=== PATIENT | male | born 1950 | race Caucasian/White ===

== ENCOUNTER 2019-05-29 12:55 | Outpatient (CLI) | payer MEDICARE ==
--- NOTE | 2019-05-29 14:02 | RAD ---
PA AND LATERAL VIEWS CHEST: Date: 05/29/19 HISTORY: Cough. Hiccups. FINDINGS: The heart size is normal. The aorta is tortuous. The lungs are expanded without lobar consolidation, pneumothoraces, or pleural effusions. There are degenerative changes in the spine. IMPRESSION: No radiographic evidence of acute cardiopulmonary process. POS: H
== END 2019-05-29 12:56 | disposition home or self-care (01) ==
LOC: BICRAD 12:55
PROVIDERS: ATTEND Internal Medicine
DX: R06.6 Hiccough (principal); R05 Cough
CPT/HCPCS: 71046; 80061; G0103; 36415; 80053; 84443; 85025

== ENCOUNTER 2019-07-21 09:06 | Outpatient (CLI) | payer MEDICARE ==
--- NOTE | 2019-07-21 14:36 | RAD ---
Chest 2 views HISTORY: Preop. COMPARISON: 05/29/2019. FINDINGS: Cardiac silhouette and pulmonary vasculature are unremarkable. Mediastinum is midline. Lung s remain slightly hyperinflated. No confluent airspace consolidation, pneumothorax, or pleural fluid. Degenerative changes of the thoracic spine are evident on the lateral view. IMPRESSION: No active cardiopulmonary abnormalities are demonstrated.
--- NOTE | 2019-07-22 11:10 | EKG ---
Test Reason : Blood Pressure : / mmHG Vent. Rate : 060 BPM Atrial Rate : 060 BPM P-R Int : 144 ms QRS Dur : 096 ms QT Int : 424 ms P-R-T Axes : 031 -06 037 degrees QTc Int : 424 ms Normal sinus rhythm Minimal voltage criteria for LVH, may be normal variant Borderline ECG When compared with ECG of 13-AUG-2014 09:50, T wave amplitude has decreased in Anterior leads Confirmed by DR. Tresa SWANSON ([id number]) on 07/22/2019 11:09:56 AM Referred By: GRAZYNA Confirmed By:DR. Tresa SWANSON
== END 2019-07-21 09:07 | disposition home or self-care (01) ==
LOC: LABBT 09:06
PROVIDERS: ATTEND Thoracic Surgery (Cardiothoracic Vascular Surgery)
DX: Z01.818 Encounter for other preprocedural examination (principal); I25.10 Atherosclerotic heart disease of native coronary artery without angina pectoris
CPT/HCPCS: 71046; 93005; 93010

== ENCOUNTER 2019-07-21 12:30 | Inpatient (IN) | payer MEDICARE ==
[2019-07-21 13:55] LABS: Hemoglobin 15.2 g/dL (14.0-18.0); Mean Corpuscular HGB CONC 33.2 g/dL (32.0-36.0); Mean Corpuscular Hemoglobin 28.7 pg (27.0-31.0); Mean Corpuscular Volume 86.5 fL (78.0-98.0); Mean Platelet Volume 9.3 fL (7.4-10.4); Platelet Count 212 thou/uL (130-400); RBC Distribution Width 13.5 % (11.5-14.5); Red Blood Cell (RBC) Count 5.28 mill/uL (4.70-6.10)
[2019-07-21 14:11] LABS: PTT 26.5 SEC (22.9-36.1)
[2019-07-21 14:44] LABS: Anion Gap 13 mmol/L (10-20); BUN (Urea Nitrogen) 13 mg/dL (8.4-25.7); Calc. Creatinine Clearance 0 mL/min (70-130); Calcium 9.1 mg/dL (7.8-10.44); Carbon Dioxide 24 mmol/L (23-31); Chloride 108 mmol/L (98-107); Estimated GFR-MDRD 67; Glucose 110 mg/dL (80-115); Potassium 3.8 mmol/L (3.5-5.1); Sodium 141 mmol/L (136-145)
[2019-07-22] MEDS ORDERED: EPINEPHrine 1 MG/ML AMP ONE (06:28)
[2019-07-22] MEDS ORDERED: Albumin 5% 500 ML ONE (06:28)
[2019-07-22] MEDS ORDERED: Bupivacaine PF 0.5% 30 ML VIAL ONE (06:28)
[2019-07-22] MEDS ORDERED: Dexamethasone 4 mg/ml Vial ONE (06:28)
[2019-07-22] MEDS ORDERED: Heparin 10,000 UNITS/1 ML VIAL 30,000 UNITS in Sodium Chloride 0.9% 1,000 ML FS SCH (06:45)
[2019-07-22] MEDS ORDERED: Fentanyl 250 MCG/5 ML VIAL ONE (06:47)
[2019-07-22] MEDS ORDERED: Midazolam HCl 5 mg/5 ml Vial ONE (06:48)
[2019-07-22] MEDS ORDERED: Vecuronium 10 MG VIAL ONE ×2 (06:48→09:38)
[2019-07-22] MEDS ORDERED: Dexmedetomidine 200 MCG/2 ML VIAL ONE (06:48)
[2019-07-22] MEDS ORDERED: Midazolam HCl 2 mg/2 ml Vial ONE (07:03)
[2019-07-22] MEDS ORDERED: Sodium Chloride 0.9% 10 ML ONE (07:48)
[2019-07-22] MEDS ORDERED: Insulin Regular 300 UNITS/3 ML VIAL ONE (09:08)
[2019-07-22] MEDS ORDERED: Heparin 5,000 UNITS/ML VIAL ONE (09:38)
[2019-07-22] MEDS ORDERED: Cardioplegic Soln 1,000 ML BAG ONE (09:38)
[2019-07-22] MEDS ORDERED: Calcium Chloride 1 GM/10 ML Abboject SYRINGE ONE (09:38)
[2019-07-22] MEDS ORDERED: Ondansetron PF 4 MG/2 ML Vial ONE (09:38)
[2019-07-22] MEDS ORDERED: PHENYLEPHRINE-NS 100 MCG/ML 10 ML SYRINGE ONE (09:38)
[2019-07-22] MEDS ORDERED: Aminocaproic Acid 5 GM/20 ML VIAL ONE (09:38)
[2019-07-22] MEDS ORDERED: Potassium Chloride 60 MEQ/30 ML VIAL ONE (09:38)
[2019-07-22] MEDS ORDERED: Protamine Sulfate 250 MG/25 ML VIAL ONE (09:38)
[2019-07-22] MEDS ORDERED: Heparin 30,000 units/30 ml VIAL ONE (09:38)
[2019-07-22] MEDS ORDERED: Lidocaine 1% PF 5 ML VIAL ONE (09:38)
[2019-07-22] MEDS ORDERED: Norepinephrine 4 MG/4 ML VIAL ONE (09:38)
[2019-07-22] MEDS ORDERED: Sodium Bicarb 50 MEQ/50 ML Abboject 8.4% SYRINGE ONE (09:38)
[2019-07-22] MEDS ORDERED: Papaverine 60 MG/2 ML VIAL ONE (09:38)
[2019-07-22] MEDS ORDERED: PROPOFOL 200 MG/20 ML VIAL ONE (09:38)
[2019-07-22] MEDS ORDERED: Lidocaine 2% PF 5 ML VIAL ONE (09:38)
[2019-07-22] MEDS ORDERED: Nitroglycerin 50 MG/250 ML BOT ONE (09:38)
[2019-07-22] MEDS ORDERED: Thrombin 5000 UNITS/5 ML VIAL ONE (09:38)
[2019-07-22] MEDS ORDERED: Magnesium Sulfate 1 GM/2 ML VIAL ONE (09:38)
[2019-07-22] MEDS ORDERED: Glycopyrrolate 0.2 MG/ML 5 ML SYRINGE ONE (09:38)
[2019-07-22] MEDS ORDERED: Norepinephrine 8 MG/0.9% NS 250 ML IVPB PRN (11:47)
[2019-07-22] MEDS ORDERED: Potassium Chloride 20 MEQ/100 ML PREMIX BAG IVPB PRN (11:47)
[2019-07-22] MEDS ORDERED: hydrALAZINE 20 MG/ML VIAL SLOW IVP PRN (11:47)
[2019-07-22] MEDS ORDERED: Fentanyl 100 MCG/2 ML VIAL SLOW IVP PRN (11:47)
[2019-07-22] MEDS ORDERED: Bisacodyl 10 MG SUPP PR PRN (11:47)
[2019-07-22] MEDS ORDERED: Promethazine HCl 25 MG/ML VIAL IM PRN (11:47)
[2019-07-22] MEDS ORDERED: Morphine 2 MG/ML SYRINGE SLOW IVP PRN (11:47)
[2019-07-22] MEDS ORDERED: Acetaminophen 325 MG TAB PO PRN (11:47)
[2019-07-22] MEDS ORDERED: Hetastarch 6% 500 ML 500 ML IVPB PRN (11:47)
[2019-07-22] MEDS ORDERED: Nitroglycerin 50 MG/250 ML BOT 250 ML IVPB PRN (11:47)
[2019-07-22] MEDS ORDERED: Guaifenesin DM 100-10/5 ML UDCUP PO PRN (11:47)
[2019-07-22] MEDS ORDERED: Bisacodyl 5 MG TAB PO PRN (11:47)
[2019-07-22] MEDS ORDERED: Mag-Al 1200 mg/1200 mg/30 ML UDCUP PO PRN (11:47)
[2019-07-22] MEDS ORDERED: HYDROcodone/Acetaminophen 5/325 mg Tablet PO PRN (11:47)
[2019-07-22] MEDS ORDERED: Ondansetron PF 4 MG/2 ML Vial IVP PRN (11:47)
[2019-07-22] MEDS ORDERED: D5 1/2 NS w/20 mEq KCL 1,000 ML IV SCH (11:47)
[2019-07-22] MEDS ORDERED: Magnesium 2 GM/50 ML 2 GM in Premix Bag 1 BAG IVPB SCH (11:47)
[2019-07-22] MEDS ORDERED: Dextrose 5% in Water 1,000 ML IV PRN (12:27)
[2019-07-22] MEDS ORDERED: Dextrose 50% Abboject 50 ML SYRINGE SLOW IVP PRN (12:27)
[2019-07-22] MEDS: Fentanyl 100 MCG/2 ML VIAL SLOW IVP PRN ×2 (12:30→15:25)
[2019-07-22] MEDS: Ketorolac Tromethamine 30 MG/ML VIAL IVP SCH ×3 (12:30→23:54)
--- NOTE | 2019-07-22 12:33 | RAD ---
XR Chest 1 View Portable History: Open-heart surgery Comparison: Radiograph prior day Findings: The mediastinum is enlarged, postsurgical in nature. Mediastinum drains are present. Mild a telectasis both lower lobes. No significant pneumothorax. Right central venous catheter tip projects over the right atrium. Impression: Expected postoperative findings without complication.
[2019-07-22 12:39] LABS: Hemoglobin 13.8 g/dL (14.0-18.0); INR-International Normal Ratio 1.2; Mean Corpuscular HGB CONC 34.3 g/dL (32.0-36.0); Mean Corpuscular Hemoglobin 29.7 pg (27.0-31.0); Mean Corpuscular Volume 86.7 fL (78.0-98.0); Mean Platelet Volume 9.1 fL (7.4-10.4); PTT 27.4 SEC (22.9-36.1); Platelet Count 154 thou/uL (130-400); Prothrombin Time 15.3 SEC (12.0-14.7); RBC Distribution Width 13.3 % (11.5-14.5); Red Blood Cell (RBC) Count 4.64 mill/uL (4.70-6.10); White Blood Cell (WBC) Count 20.4 thou/uL (4.8-10.8)
[2019-07-22 13:00] LABS: Anion Gap 10 mmol/L (10-20); BUN (Urea Nitrogen) 11 mg/dL (8.4-25.7); Calc. Creatinine Clearance 97 mL/min (70-130); Calcium 7.9 mg/dL (7.8-10.44); Carbon Dioxide 24 mmol/L (23-31); Chloride 111 mmol/L (98-107); Estimated GFR-MDRD 80; Glucose 113 mg/dL (80-115); Potassium 4.2 mmol/L (3.5-5.1); Sodium 141 mmol/L (136-145)
[2019-07-22 13:03] LABS: Band 23 % (5-11); Lymphocytes 3 % (21-51); MDiff Complete? YES; Metamyelocyte 1 % (0-0); Monocytes 2 % (0-10); Neutrophil 66 % (42-75); RBC Morphology Normal; Reactive Lymphocytes 5 % (0-10)
[2019-07-22] MEDS: CEFAZOLIN 2 GM in Premix Bag 1 BAG IVPB SCH ×2 (14:06→21:27)
--- NOTE | 2019-07-22 16:07 | OP ---
DATE OF PROCEDURE: 07/22/2019 PREOPERATIVE DIAGNOSIS: Coronary artery disease. POSTOPERATIVE DIAGNOSIS: Coronary artery disease. PROCEDURE PERFORMED: Coronary artery bypass grafting x6: 1. Sequential left internal mammary artery to a 1.5 mm diagonal and 1.5 mm distal left anterior descending, good conduit and targets. 2. Left radial artery to 2.5 mm obtuse marginal, good conduit and target. 3. Reverse saphenous vein to 2.0 mm ramus, good conduit and target. 4. Sequential greater saphenous vein graft to 2.5 mm right coronary artery and 1.5 mm distal postoperative descending artery, good conduit and targets. SCAFFOLD WORKER SURGEON: Simeon Moody MD ANESTHESIA: General endotracheal. ANESTHESIOLOGIST: Memo Owens MD. PUMP TIME: 86 minutes. CROSS-CLAMP TIME: 57 minutes. LOW CORE TEMPERATURE: 34 degrees Celsius. WOODWORKER HELPER: Olya Millan. DRAINS: 24-Uzbek chest tubes x2. DRIPS: None. TRANSFUSIONS: None. DESCRIPTION OF PROCEDURE: After consent was obtained, the patient was brought to operating room and placed in supine position on the operating table. Appropriate central line and monitors was placed and general endotracheal anesthesia was induced. Chest, abdomen, and legs were prepped and draped in the usual sterile fashion. Left arm was prepped and draped in the usual sterile fashion. Greater saphenous vein was harvested using an endoscopic technique from the left thigh down into the mid calf. Wounds were irrigated and closed in layers. The left radial artery was harvested as a pedicle graft. Wounds were irrigated and closed in layers. Median sternotomy was performed. Left internal mammary artery was harvested as a pedicle graft. The patient was systemically heparinized. Distal pedicle was divided and infused with papaverine. Thymic fat and pericardium were divided with electrocautery. Pericardial stay sutures were placed. Aortic and atrial cannulation was performed. After adequate heparinization, retrograde prime was performed and the patient was placed on cardiopulmonary bypass. Distal targets were marked. Aortic cross-clamp was applied and antegrade sanguineous cardioplegic arrest was obtained. 1 L of antegrade cold [place] cardioplegia was given. Topical cold solution was used. Reverse saphenous vein was anastomosed in a [id number] fashion with the distal RCA in an end-to-side fashion with the distal PDA in an end-to-side fashion with running 7-0 Prolene suture. Anastomoses were inspected for hemostasis, they were hemostatic. The radial artery was anastomosed to the OM in an end-to-side fashion with running 7-0 Prolene suture. Pedicle was secured with interrupted 6-0 Prolene suture. The saphenous vein graft was anastomosed to the ramus in an end-to-side fashion with running 7-0 Prolene suture. Anastomosis was tested, it was hemostatic. Mammary artery was brought through a window in the pericardium and anastomosed in a [id number] fashion with diagonal and end-to-side fashion with distal LAD. On release of mammary clamps, good hooding of the anastomosis and good distal flow. Pedicle was secured with interrupted 6-0 Prolene suture. Cross-clamp was removed and partial occluding clamp placed. Saphenous veins were anastomosed to puncture sites in the aorta with running 6-0 Prolene suture. The radial artery was anastomosed to the norman of the ramus graft with running 7-0 Prolene suture. Partial occluding clamp was removed and graft was deaired. Anastomoses were inspected for hemostasis, which was good. The patient was warmed and weaned from cardiopulmonary bypass. After resumption of sinus rhythm, good hemodynamics, temperature greater than 36.5, bypass was discontinued. Transfusion was given. A 24-Uzbek chest tubes were placed in the mediastinum. Decannulation was performed and pursestring suture secured. Protamine was administered. After adequate hemostasis had been obtained, the sternum was treated with vancomycin paste. Sternum was then closed with #7 wire. Sternum was treated with platelet-rich plasma, wires twisted and buried. A peristernal block was performed with 0.5% Marcaine with epinephrine. The wounds were irrigated, treated with platelet-poor plasma and closed in multiple layers. Dermabond was applied to all skin incisions. The patient tolerated the procedure well, transferred to the intensive care unit in stable, but critical condition. Job ID: [id number]
[2019-07-22] MEDS: Insulin Regular 300 UNITS/3 ML VIAL SC PRN (16:23)
[2019-07-22] MEDS: HYDROcodone/Acetaminophen 5/325 mg Tablet PO PRN ×3 (16:25→23:55)
[2019-07-22 17:17] LABS: Hemoglobin 13.8 g/dL (14.0-18.0)
[2019-07-22 17:49] LABS: Potassium 4.4 mmol/L (3.5-5.1)
[2019-07-22] MEDS: Atorvastatin Calcium 20 MG TAB PO SCH (20:17)
[2019-07-22] MEDS ORDERED: Famotidine/PF 20 mg/2ml Vial SLOW IVP SCH (21:00)
[2019-07-23] MEDS: Insulin Regular 300 UNITS/3 ML VIAL SC PRN (00:36)
[2019-07-23] MEDS: HYDROcodone/Acetaminophen 5/325 mg Tablet PO PRN ×3 (04:06→19:45)
[2019-07-23 04:48] LABS: Anion Gap 11 mmol/L (10-20); BUN (Urea Nitrogen) 15 mg/dL (8.4-25.7); Calc. Creatinine Clearance 92 mL/min (70-130); Calcium 7.7 mg/dL (7.8-10.44); Carbon Dioxide 24 mmol/L (23-31); Chloride 108 mmol/L (98-107); Estimated GFR-MDRD 70; Glucose 139 mg/dL (80-115); Sodium 139 mmol/L (136-145)
[2019-07-23 04:57] LABS: #Lymphocytes 1.2 thou/uL (1.20-3.40); #Neutrophils 7.9 thou/uL (1.40-6.50); %Basophils 0.4 % (0.0-1.0); %Eosinophils 0.4 % (0.0-10.0); %Lymphocytes 11.6 % (21.0-51.0); %Neutrophils 77.6 % (42.0-75.0); Hemoglobin 11.4 g/dL (14.0-18.0); Mean Corpuscular HGB CONC 33.3 g/dL (32.0-36.0); Mean Platelet Volume 9.9 fL (7.4-10.4); Platelet Count 144 thou/uL (130-400); RBC Distribution Width 13.5 % (11.5-14.5); Red Blood Cell (RBC) Count 3.94 mill/uL (4.70-6.10); White Blood Cell (WBC) Count 10.2 thou/uL (4.8-10.8)
[2019-07-23] MEDS: CEFAZOLIN 2 GM in Premix Bag 1 BAG IVPB SCH (05:05)
[2019-07-23] MEDS: Ketorolac Tromethamine 30 MG/ML VIAL IVP SCH ×4 (05:06→23:19)
[2019-07-23] MEDS: Magnesium 2 GM/50 ML 2 GM in Premix Bag 1 BAG IVPB SCH (08:01)
[2019-07-23] MEDS: Aspirin 325 MG TAB PO SCH (08:02)
--- NOTE | 2019-07-23 08:22 | PDOC.CPN ---
- Subjective Date: 07/23/19 Time: 10:15 Interval history: The pt seen and examined. No overnight events. No cardiac complaints. - Objective Allergies/Adverse Reactions: Allergies Allergy/AdvReac Type Severity Reaction Status Date / Time No Known Allergies Allergy Verified 07/21/19 12:55 Visit Medications: Current Medications Acetaminophen (Tylenol) 650 mg PO Q6H PRN PRN Reason: Headache/Fever/Mild Pain (1-3) Al Hydroxide/Mg Hydroxide (Maalox) 30 ml PO Q4H PRN PRN Reason: Indigestion Albumin Human (Albumin 5%) 12.5 gm IVPB Q6H PRN PRN Reason: To Maintain SBP> 90 mmHG Stop: 07/23/19 11:48 Last Admin: 07/22/19 19:30 Dose: 12.5 gm Albumin Human (Albumin 5%) 25 gm IVPB Q6H PRN PRN Reason: To Maintain SBP > 90 mmHG Stop: 07/23/19 11:48 Last Admin: 07/22/19 20:25 Dose: 25 gm Albuterol/Ipratropium (Duoneb) 3 ml NEB Q6H PRN PRN Reason: SHORTNESS OF BREATH Aspirin (Aspirin) 325 mg PO DAILY [facility] Last Admin: 07/23/19 08:02 Dose: 325 mg Atorvastatin Calcium (Lipitor) 20 mg PO HS [facility] Last Admin: 07/22/19 20:17 Dose: 20 mg Bisacodyl (Dulcolax) 10 mg PO Q12H PRN PRN Reason: Constipation Bisacodyl (Dulcolax) [address] Q12H PRN PRN Reason: Constipation Fentanyl (Sublimaze) 25 mcg SLOW IVP Q2H PRN PRN Reason: Moderate Pain (4-6) Stop: 07/24/19 11:34 Fentanyl (Sublimaze) 50 mcg SLOW IVP Q2H PRN PRN Reason: Severe Pain (7-10) Stop: 07/24/19 11:34 Last Admin: 07/22/19 15:25 Dose: 50 mcg Guaifenesin/Dextromethorphan (Robitussin Dm) 15 ml PO Q4H PRN PRN Reason: Cough Hydralazine HCl (Apresoline) 10 mg SLOW IVP Q6H PRN PRN Reason: To Maintain SBP< 140mmHG Hetastarch/Sodium Chloride (Hespan) 500 mls @ 0 mls/hr IVPB PRN PRN PRN Reason: To Maintain SBP > 90mmHg Stop: 07/23/19 11:34 Magnesium Sulfate 2 gm/ Device 50 mls @ 50 mls/hr IVPB QAM [facility] Stop: 07/24/19 09:59 Last Admin: 07/23/19 08:01 Dose: 50 mls Ketorolac Tromethamine (Toradol) 30 mg IVP Q6HR [facility] Stop: 07/25/19 12:01 Last Admin: 07/23/19 05:06 Dose: 30 mg Ondansetron HCl (Zofran) 4 mg IVP Q6H PRN PRN Reason: Nausea/Vomiting Pantoprazole Sodium (Protonix) 40 mg PO DAILY [facility] Last Admin: 07/23/19 08:02 Dose: 40 mg Pneumococcal 13-Valent Conj Vacc (Prevnar) 0.5 ml IM .ONCE ONE Stop: 07/23/19 14:31 Last Admin: 07/23/19 07:32 Dose: Not Given Potassium Chloride (Kcl) 20 meq IVPB PRN PRN PRN Reason: K level </= 4.0 Last Admin: 07/23/19 08:02 Dose: 20 meq Promethazine HCl (Phenergan) 6.25 mg IM Q4H PRN PRN Reason: Nausea/Vomiting Sodium Chloride (Flush - Normal Saline) 10 ml IVF PRN PRN PRN Reason: Saline Flush Vital Signs & Weight: Vital Signs Temp 07/23/19 03:00 98.0 F 07/22/19 23:00 98.4 F Weight 216 lb 4.375 oz - Physical Exam General: alert & oriented x3 HEENT: mucus membranes moist Neck: supple neck Cardiac: regular rate and rhythm, S1/S2 Lungs: clear to auscultation, decreased breath sounds Abdomen: unremarkable Musculoskeletal: decreased range of motion - Labs Result Diagrams: 07/23/19 04:00 07/23/19 04:00 - Telemetry Sinus rhythms and dysrhythmias: sinus rhythm - Assessment/Plan Assessment/Plan: 1. CAD with s/p CABG x6 on 07/22/2019 with MARCOS-diag and LAD, Lt Radial-OM, and RSVG-RCA and PDA - stable; On ASA and Lipitor; will start BBlocker and CLAUS/ARB with more stable VS MAR reviewed Pt. seen and eval. by me. I agree wkith the A/P by the WOUND TREATMENT RN. Doing well post CABG. He had some sharp chest pain earlier today, no ekg changes. Musculoskeletal. Chest clear. RRR. No edema. peterson
--- NOTE | 2019-07-23 08:49 | RAD ---
CHEST ONE VIEW: HISTORY: Post open heart surgery. COMPARISON: Radiograph from the prior day. FINDINGS: Mediastinal drains persist. Mild atelectasis in both lung bases. Small effusions. Central venous cath eter tip poorly seen IMPRESSION: Similar examination to the chest. POS: CET
[2019-07-23] MEDS ORDERED: traMADol HCl 50 MG TAB PO PRN (09:22)
[2019-07-23] MEDS ORDERED: Prevnar 13-Val Conj/PF 0.5 ML SYRINGE IM ONE (14:30)
[2019-07-23] MEDS: Atorvastatin Calcium 20 MG TAB PO SCH (19:45)
[2019-07-24] MEDS: HYDROcodone/Acetaminophen 5/325 mg Tablet PO PRN ×4 (01:00→21:21)
[2019-07-24] MEDS: Ketorolac Tromethamine 30 MG/ML VIAL IVP SCH ×3 (06:08→17:32)
[2019-07-24] MEDS ORDERED: Amiodarone 150 MG, Admixture Fee 1 EACH in Dextrose 5% in Water 100 ML IVPB SCH (07:15)
[2019-07-24] MEDS ORDERED: Amiodarone 450 MG, Admixture Fee 1 EACH in Dextrose 5% in Water 250 ML IVPB SCH (07:15)
[2019-07-24] MEDS: Aspirin 325 MG TAB PO SCH (08:34)
[2019-07-24] MEDS: Magnesium 2 GM/50 ML 2 GM in Premix Bag 1 BAG IVPB SCH (08:34)
--- NOTE | 2019-07-24 13:12 | PDOC.CPN ---
- Subjective Date: 07/24/19 Time: 10:00 - Review of Systems Respiratory: reports: shortness of breath Cardiovascular: reports: chest pain Gastrointestinal: reports: nausea, vomiting Musculoskeletal: reports: pain (at the site ov SVG retrieval), swelling Neurological: reports: numbness - Objective Allergies/Adverse Reactions: Allergies Allergy/AdvReac Type Severity Reaction Status Date / Time No Known Allergies Allergy Verified 07/21/19 12:55 Visit Medications: Current Medications Acetaminophen (Tylenol) 650 mg PO Q6H PRN PRN Reason: Headache/Fever/Mild Pain (1-3) Hydrocodone Bitart/Acetaminophen ([place] 5/325) 2 tab PO Q4H PRN PRN Reason: Pain Last Admin: 07/24/19 08:51 Dose: 2 tab Al Hydroxide/Mg Hydroxide (Maalox) 30 ml PO Q4H PRN PRN Reason: Indigestion Albuterol/Ipratropium (Duoneb) 3 ml NEB Q6H PRN PRN Reason: SHORTNESS OF BREATH Aspirin (Aspirin) 325 mg PO DAILY [facility] Last Admin: 07/24/19 08:34 Dose: 325 mg Atorvastatin Calcium (Lipitor) 20 mg PO HS [facility] Last Admin: 07/23/19 19:45 Dose: 20 mg Bisacodyl (Dulcolax) 10 mg PO Q12H PRN PRN Reason: Constipation Bisacodyl (Dulcolax) 10 mg [place] Q12H PRN PRN Reason: Constipation Guaifenesin/Dextromethorphan (Robitussin Dm) 15 ml PO Q4H PRN PRN Reason: Cough Hydralazine HCl (Apresoline) 10 mg SLOW IVP Q6H PRN PRN Reason: To Maintain SBP< 140mmHG Amiodarone HCl 450 mg/Miscellaneous Medication 1 each/ Dextrose/Water 259 mls @ 0 mls/hr IVPB INF [facility]; Protocol Last Admin: 07/24/19 07:13 Dose: 259 mls Ketorolac Tromethamine (Toradol) 30 mg IVP Q6HR [facility] Stop: 07/25/19 12:01 Last Admin: 07/24/19 11:50 Dose: 30 mg Ondansetron HCl (Zofran) 4 mg IVP Q6H PRN PRN Reason: Nausea/Vomiting Pantoprazole Sodium (Protonix) 40 mg PO DAILY [facility] Last Admin: 07/24/19 08:34 Dose: 40 mg Potassium Chloride (Kcl) 20 meq IVPB PRN PRN PRN Reason: K level </= 4.0 Last Admin: 07/23/19 08:02 Dose: 20 meq Promethazine HCl (Phenergan) 6.25 mg IM Q4H PRN PRN Reason: Nausea/Vomiting Sodium Chloride (Flush - Normal Saline) 10 ml IVF PRN PRN PRN Reason: Saline Flush Vital Signs & Weight: Vital Signs Temp Pulse Ox 07/24/19 12:00 98.7 F 07/24/19 08:00 98.5 F 94 L 07/24/19 04:00 98.4 F Weight 216 lb 7.903 oz - Physical Exam HEENT: mucus membranes moist Neck: supple neck Cardiac: irregularly regular (atrial fibrillation on the monitor.) Lungs: normal breath sounds (except decreased BS in left base.) Neuro: grossly intact Abdomen: unremarkable Extremities: no cyanosis, no edema Musculoskeletal: normal range of motion - Labs Result Diagrams: 07/23/19 04:00 07/23/19 04:00 - Telemetry Supraventricular conduction: atrial fibrillation - Assessment/Plan Assessment/Plan: 1. CAD with s/p CABG x6 on 07/22/2019 with MARCOS-diag and LAD, Lt Radial-OM, and RSVG-RCA and PDA - stable; On ASA and Lipitor; will start BBlocker and CLAUS/ARB with more stable VS 2. atrial fibrillation. Continue IV amiodarone. If still in Afib. tomorrow AM then plan for cardioversion. MAR reviewed
[2019-07-24] MEDS: Fentanyl 100 MCG/2 ML VIAL SLOW IVP PRN (15:58)
[2019-07-24] MEDS: Dronedarone HCl 400 MG TAB PO SCH (17:32)
[2019-07-24] MEDS: Atorvastatin Calcium 20 MG TAB PO SCH (21:20)
[2019-07-25] MEDS: Ketorolac Tromethamine 30 MG/ML VIAL IVP SCH ×3 (00:42→11:16)
[2019-07-25] MEDS: Fentanyl 100 MCG/2 ML VIAL SLOW IVP PRN ×2 (02:56→17:35)
[2019-07-25] MEDS: HYDROcodone/Acetaminophen 5/325 mg Tablet PO PRN ×3 (05:21→21:05)
[2019-07-25] MEDS: Dronedarone HCl 400 MG TAB PO SCH ×2 (07:27→17:28)
[2019-07-25] MEDS: Aspirin 325 MG TAB PO SCH (07:27)
[2019-07-25] MEDS: Carvedilol 3.125 MG TAB PO SCH ×2 (07:28→17:28)
[2019-07-25] MEDS ORDERED: Guaifenesin DM 100-10/5 ML UDCUP PO PRN (09:48)
[2019-07-25] MEDS ORDERED: Artificial Tears 18 DROP/0.9 ML EA EYE PRN (09:48)
[2019-07-25] MEDS ORDERED: Mineral Oil ENEMA PR PRN (09:48)
[2019-07-25] MEDS ORDERED: Bisacodyl 10 MG SUPP PR PRN (09:48)
[2019-07-25] MEDS ORDERED: diphenhydrAMINE 25 MG CAP PO PRN (09:48)
[2019-07-25] MEDS ORDERED: Aspirin 325 mg Enteric Coated Tablet PO SCH (09:48)
[2019-07-25] MEDS ORDERED: Mag-Al 1200 mg/1200 mg/30 ML UDCUP PO PRN (09:48)
[2019-07-25] MEDS ORDERED: Nitroglycerin 0.4 MG TAB (25 Tab Bottle) SL PRN (09:48)
[2019-07-25] MEDS ORDERED: Zolpidem Tartrate 5 MG TAB PO PRN (09:48)
[2019-07-25] MEDS ORDERED: Bisacodyl 5 MG TAB PO PRN (09:48)
[2019-07-25] MEDS ORDERED: Furosemide 40 MG TAB PO SCH (10:00)
[2019-07-25] MEDS ORDERED: Potassium Chloride 10 MEQ TAB PO SCH (10:00)
--- NOTE | 2019-07-25 10:52 | PDOC.CPN ---
- Subjective Date: 07/25/19 Time: 10:55 Interval history: The pt seen and examined. No overnight events. No cardiac complaints. - Objective Allergies/Adverse Reactions: Allergies Allergy/AdvReac Type Severity Reaction Status Date / Time No Known Allergies Allergy Verified 07/21/19 12:55 Visit Medications: Current Medications Acetaminophen (Tylenol) 650 mg PO Q6H PRN PRN Reason: Headache/Fever/Mild Pain (1-3) Hydrocodone Bitart/Acetaminophen ([place] 5/325) 2 tab PO Q4H PRN PRN Reason: Pain Last Admin: 07/25/19 07:57 Dose: 2 tab Al Hydroxide/Mg Hydroxide (Maalox) 30 ml PO Q4H PRN PRN Reason: Indigestion Albuterol/Ipratropium (Duoneb) 3 ml NEB Q6H PRN PRN Reason: SHORTNESS OF BREATH Artificial Tears (Tears Naturale) 0 drop EA EYE PRN PRN PRN Reason: Dry Eyes Aspirin (Aspirin) 325 mg PO DAILY [facility] Last Admin: 07/25/19 07:27 Dose: 325 mg Atorvastatin Calcium (Lipitor) 20 mg PO [facility] Last Admin: 07/24/19 21:20 Dose: 20 mg Bisacodyl (Dulcolax) 10 mg PO Q12H PRN PRN Reason: Constipation Last Admin: 07/25/19 03:00 Dose: 10 mg Bisacodyl (Dulcolax) 10 mg [place] Q12H PRN PRN Reason: Constipation [facility] Last Admin: 07/25/19 07:28 Dose: 3.125 mg Diphenhydramine HCl (Benadryl) 25 mg PO Q6H PRN PRN Reason: Itching & Insomnia or Tru Leobardo [facility]) [facility] Last Admin: 07/25/19 07:27 Dose: 400 mg Fentanyl (Sublimaze) 25 mcg SLOW IVP Q2H PRN PRN Reason: Moderate Pain (4-6) Fentanyl (Sublimaze) 50 mcg SLOW IVP Q2H PRN PRN Reason: Severe Pain (7-10) Last Admin: 07/25/19 02:56 Dose: 50 mcg Furosemide (Lasix) 40 mg PO DAILY [facility] Furosemide (Lasix) 40 mg PO NOW [facility] Stop: 07/25/19 12:00 Last Admin: 07/25/19 10:05 Dose: 40 mg Guaifenesin/Dextromethorphan (Robitussin Dm) 15 ml PO Q4H PRN PRN Reason: Cough Hydralazine HCl (Apresoline) 10 mg SLOW IVP Q6H PRN PRN Reason: To Maintain SBP< 140mmHG Ketorolac Tromethamine (Toradol) 30 mg IVP Q6HR [facility] Stop: 07/25/19 12:01 Last Admin: 07/25/19 06:35 Dose: 30 mg Mineral Oil (Fleet Mineral Oil) 133 ml [place] DAILYPRN PRN PRN Reason: Constipation Nitroglycerin (Nitrostat) 0.4 mg SL Q5MIN PRN PRN Reason: Chest Pain Ondansetron HCl (Zofran) 4 mg IVP Q6H PRN PRN Reason: Nausea/Vomiting Pantoprazole Sodium (Protonix) 40 mg PO DAILY [facility] Last Admin: 07/25/19 07:28 Dose: 40 mg Potassium Chloride (Kcl) 20 meq IVPB PRN PRN PRN Reason: K level </= 4.0 Last Admin: 07/23/19 08:02 Dose: 20 meq Potassium Chloride (Klor-Con 10) 10 meq PO [facility] Potassium Chloride (Klor-Con 10) 10 meq PO NOW [facility] Stop: 07/25/19 12:00 Last Admin: 07/25/19 10:05 Dose: 10 meq Promethazine HCl (Phenergan) 6.25 mg IM Q4H PRN PRN Reason: Nausea/Vomiting Sodium Chloride (Flush - Normal Saline) 10 ml IVF PRN PRN PRN Reason: Saline Flush Zolpidem Tartrate (Ambien) 5 mg PO HSPRN PRN PRN Reason: Insomnia Vital Signs & Weight: Vital Signs Temp Pulse Ox 07/25/19 07:13 94 L 07/25/19 07:00 98.0 F 07/25/19 04:00 97.7 F 07/25/19 00:00 98.0 F Weight 216 lb 7.903 oz - Physical Exam General: alert & oriented x3 HEENT: mucus membranes moist Neck: supple neck Cardiac: regular rate and rhythm, S1/S2 Lungs: clear to auscultation Extremities: no edema - Labs Result Diagrams: 07/23/19 04:00 07/23/19 04:00 - Telemetry Sinus rhythms and dysrhythmias: sinus rhythm - Assessment/Plan Assessment/Plan: 1. CAD with s/p CABG x6 on 07/22/2019 with MARCOS-diag and LAD, Lt Radial-OM, and RSVG-RCA and PDA - stable; On ASA and Lipitor; Coreg 3.125mg BID was started from this AM; 2. Atrial fibrillation - converted back to SR this aM; On Multaq. On ASA 325mg qd. MAR reviewed pt. seen and eval. by me. I agree with the A/P by the DANCE CHOREOGRAPHER. Chest: decreased BS in the left base. RRR. continue Multaq for postop Afib. started Coreg today. Add Romulo-I if BP increased. carlos
--- NOTE | 2019-07-25 15:16 | EKG ---
Test Reason : POST CABG Blood Pressure : / mmHG Vent. Rate : 059 BPM Atrial Rate : 059 BPM P-R Int : 196 ms QRS Dur : 116 ms QT Int : 490 ms P-R-T Axes : 054 -39 048 degrees QTc Int : 485 ms Sinus bradycardia Left axis deviation Incomplete left bundle branch block Prolonged QT Abnormal ECG When compared with ECG of 21-JUL-2019 13:21, Incomplete left bundle branch block is now Present QT has lengthened Confirmed by DR. Tresa SWANSON ([id number]) on 07/25/2019 3:15:55 PM Referred By: Jazz HAILE Confirmed By:DR. Tresa SWANSON
--- NOTE | 2019-07-25 15:23 | EKG ---
Test Reason : C/O CHEST PAIN Blood Pressure : / mmHG Vent. Rate : 059 BPM Atrial Rate : 059 BPM P-R Int : 154 ms QRS Dur : 102 ms QT Int : 436 ms P-R-T Axes : 004 -15 019 degrees QTc Int : 431 ms Sinus bradycardia Moderate voltage criteria for LVH, may be normal variant Borderline ECG When compared with ECG of 22-JUL-2019 12:33, (Unconfirmed) Incomplete left bundle branch block is no longer Present Confirmed by DR. Tresa SWANSON ([id number]) on 07/25/2019 3:22:40 PM Referred By: Jzaz HAILE Confirmed By:DR. Tresa SWANSON
--- NOTE | 2019-07-25 15:25 | EKG ---
Test Reason : STAT Blood Pressure : / mmHG Vent. Rate : 067 BPM Atrial Rate : 067 BPM P-R Int : 164 ms QRS Dur : 096 ms QT Int : 390 ms P-R-T Axes : 008 -12 034 degrees QTc Int : 412 ms Normal sinus rhythm Normal ECG Confirmed by DR. Tresa SWANSON ([id number]) on 07/25/2019 3:25:01 PM Referred By: RN Confirmed By:DR. Tresa SWANSON
--- NOTE | 2019-07-25 15:25 | EKG ---
Test Reason : Blood Pressure : / mmHG Vent. Rate : 118 BPM Atrial Rate : 288 BPM P-R Int : 000 ms QRS Dur : 100 ms QT Int : 330 ms P-R-T Axes : 000 -11 -09 degrees QTc Int : 462 ms Atrial fibrillation with rapid ventricular response Minimal voltage criteria for LVH, may be normal variant Nonspecific T wave abnormality , probably digitalis effect Abnormal ECG When compared with ECG of 23-JUL-2019 13:13, (Unconfirmed) Atrial fibrillation has replaced Sinus rhythm Vent. rate has increased BY [address] Tresa SWANSON ([id number]) on 07/25/2019 3:25:09 PM Referred By: Jazz HAILE Confirmed By:DR. Tresa SWANSON
[2019-07-25] MEDS: Atorvastatin Calcium 20 MG TAB PO SCH (21:05)
[2019-07-26] MEDS: Carvedilol 3.125 MG TAB PO SCH ×2 (09:04→18:02)
[2019-07-26] MEDS: Dronedarone HCl 400 MG TAB PO SCH ×2 (09:04→18:02)
[2019-07-26] MEDS: Aspirin 325 MG TAB PO SCH (09:04)
[2019-07-26] MEDS: Potassium Chloride 10 MEQ TAB PO SCH (09:04)
[2019-07-26] MEDS: Lisinopril 10 MG TAB PO SCH (09:05)
[2019-07-26] MEDS: Furosemide 40 MG TAB PO SCH (09:05)
[2019-07-26] MEDS: HYDROcodone/Acetaminophen 5/325 mg Tablet PO PRN ×2 (09:05→20:45)
[2019-07-26] MEDS: Fentanyl 100 MCG/2 ML VIAL SLOW IVP PRN ×2 (09:54→14:27)
[2019-07-26] MEDS ORDERED: Iopamidol-370 76% 500 ML 1 ML ONE (11:29)
[2019-07-26 14:59] LABS: #Eosinphils 0.3 thou/uL (0.0-0.7); #Lymphocytes 1.8 thou/uL (1.20-3.40); #Neutrophils 6.9 thou/uL (1.40-6.50); %Basophils 0.2 % (0.0-1.0); %Eosinophils 3.2 % (0.0-10.0); %Lymphocytes 17.9 % (21.0-51.0); %Monocytes 9.7 % (0.0-10.0); %Neutrophils 69.1 % (42.0-75.0); Hemoglobin 12.9 g/dL (14.0-18.0); Mean Corpuscular HGB CONC 32.9 g/dL (32.0-36.0); Mean Corpuscular Hemoglobin 28.7 pg (27.0-31.0); Mean Corpuscular Volume 87.2 fL (78.0-98.0); Mean Platelet Volume 8.9 fL (7.4-10.4); Platelet Count 248 thou/uL (130-400); RBC Distribution Width 13.5 % (11.5-14.5); Red Blood Cell (RBC) Count 4.48 mill/uL (4.70-6.10)
[2019-07-26 15:22] LABS: ALT (SGPT) 10 U/L (8-55); AST (SGOT) 19 U/L (5-34); Albumin 3.3 g/dL (3.4-4.8); Alkaline Phosphatase 65 U/L (40-110); Anion Gap 12 mmol/L (10-20); BUN (Urea Nitrogen) 17 mg/dL (8.4-25.7); Bilirubin, Total 0.6 mg/dL (0.2-1.2); Calc. Creatinine Clearance 79 mL/min (70-130); Calcium 8.5 mg/dL (7.8-10.44); Carbon Dioxide 26 mmol/L (23-31); Chloride 105 mmol/L (98-107); Estimated GFR-MDRD 59; Globulin 3.2 g/dL (2.4-3.5); Glucose 148 mg/dL (80-115); Potassium 3.8 mmol/L (3.5-5.1); Protein, Total 6.5 g/dL (5.8-8.1); Sodium 139 mmol/L (136-145)
--- NOTE | 2019-07-26 16:47 | PDOC.CPN ---
- Subjective Date: 07/26/19 Time: 16:45 Interval history: She went back into afib last night and converted back to sinus overnight. No new issues. Having BM's walking with PT. - Review of Systems General: denies: fever/chills, weight/appetite/sleep changes, night sweats, fatigue Respiratory: denies: cough, congestion, shortness of breath, exercise intolerance Cardiovascular: denies: chest pain, palpitation, edema, paroxysmal nocturnal dyspnea, orthopnea Gastrointestinal: denies: nausea, vomiting, diarrhea, constipation, abd pain, GI bleeding Musculoskeletal: denies: pain, tenderness, stiffness, swelling, arthritis/ arthralgias Neurological: denies: numbness, syncope, seizure, weakness - Objective Allergies/Adverse Reactions: Allergies Allergy/AdvReac Type Severity Reaction Status Date / Time No Known Allergies Allergy Verified 07/21/19 12:55 Visit Medications: Current Medications Acetaminophen (Tylenol) 650 mg PO Q6H PRN PRN Reason: Headache/Fever/Mild Pain (1-3) Hydrocodone Bitart/Acetaminophen ([place] 5/325) 2 tab PO Q4H PRN PRN Reason: Pain Last Admin: 07/26/19 09:05 Dose: 2 tab Al Hydroxide/Mg Hydroxide (Maalox) 30 ml PO Q4H PRN PRN Reason: Indigestion Albuterol/Ipratropium (Duoneb) 3 ml NEB Q6H PRN PRN Reason: SHORTNESS OF BREATH Aspirin (Aspirin) 325 mg PO DAILY [facility] Last Admin: 07/26/19 09:04 Dose: 325 mg Atorvastatin Calcium (Lipitor) 20 mg PO [facility] Last Admin: 07/25/19 21:05 Dose: 20 mg Bisacodyl (Dulcolax) 10 mg PO Q12H PRN PRN Reason: Constipation Last Admin: 07/25/19 03:00 Dose: 10 mg Bisacodyl (Dulcolax) 10 mg [place] Q12H PRN PRN Reason: Constipation Carvedilol (Coreg) 6.25 mg PO BID[facility] Diphenhydramine HCl (Benadryl) 25 mg PO Q6H PRN PRN Reason: Itching & Insomnia or Tru Leobardo Dronedarone (Multaq) 400 mg PO BID-[facility] Last Admin: 07/26/19 09:04 Dose: 400 mg Fentanyl (Sublimaze) 25 mcg SLOW IVP Q2H PRN PRN Reason: Moderate Pain (4-6) Last Admin: 07/26/19 09:54 Dose: 25 mcg Fentanyl (Sublimaze) 50 mcg SLOW IVP Q2H PRN PRN Reason: Severe Pain (7-10) Last Admin: 07/26/19 14:27 Dose: 50 mcg Furosemide (Lasix) 40 mg PO DAILY [facility] Last Admin: 07/26/19 09:05 Dose: 40 mg Guaifenesin/Dextromethorphan (Robitussin Dm) 15 ml PO Q4H PRN PRN Reason: Cough Hydralazine HCl (Apresoline) 10 mg SLOW IVP Q6H PRN PRN Reason: To Maintain SBP< 140mmHG Lisinopril (Zestril) 10 mg PO DAILY [facility] Last Admin: 07/26/19 09:05 Dose: 10 mg Mineral Oil (Fleet Mineral Oil) 133 ml [place] DAILYPRN PRN PRN Reason: Constipation Nitroglycerin (Nitrostat) 0.4 mg SL Q5MIN PRN PRN Reason: Chest Pain Ondansetron HCl (Zofran) 4 mg IVP Q6H PRN PRN Reason: Nausea/Vomiting Pantoprazole Sodium (Protonix) 40 mg PO DAILY [facility] Last Admin: 07/26/19 09:05 Dose: 40 mg Potassium Chloride (Kcl) 20 meq IVPB PRN PRN PRN Reason: K level </= 4.0 Last Admin: 07/23/19 08:02 Dose: 20 meq Potassium Chloride (Klor-Con 10) 10 meq PO QA[facility] Last Admin: 07/26/19 09:04 Dose: 10 meq Promethazine HCl (Phenergan) 6.25 mg IM Q4H PRN PRN Reason: Nausea/Vomiting Sodium Chloride (Flush - Normal Saline) 10 ml IVF PRN PRN PRN Reason: Saline Flush Zolpidem Tartrate (Ambien) 5 mg PO HSPRN PRN PRN Reason: Insomnia Vital Signs & Weight: Vital Signs Temp Pulse Pulse Pulse Resp BP BP 07/26/19 15:03 98.1 F 65 18 07/26/19 11:56 78 67 130/75 155/79 H 07/26/19 11:08 97.8 F 71 29 H 07/26/19 09:10 100 110 H 169/98 H 167/77 H 07/26/19 07:29 97.9 F 94 18 BP Pulse Ox Pulse Ox Pulse Ox 07/26/19 15:03 135/65 92 L 07/26/19 11:56 95 95 07/26/19 11:08 134/67 93 L 07/26/19 09:10 95 94 L 07/26/19 07:29 165/87 H 93 L Weight 217 lb - Physical Exam General: alert & oriented x3 HEENT: mucus membranes moist Neck: supple neck Cardiac: regular rate and rhythm Lungs: clear to auscultation Neuro: grossly intact Abdomen: active bowel sounds Extremities: 1+ LE edema Skin: clear Musculoskeletal: no pain - Labs Result Diagrams: 07/26/19 14:50 07/26/19 14:50 - Telemetry Sinus rhythms and dysrhythmias: sinus rhythm Supraventricular conduction: atrial fibrillation - Assessment/Plan Assessment/Plan: 1. CAD with s/p CABG x6 2. Post op atrial fibrillation: PLAN: - Continue Multaq for afib. - On ASA, statin, BB, ACEI. - Increase PT as tolerated.
--- NOTE | 2019-07-26 17:12 | CT ---
CTA Angio Chest W WO Con 07/26/2019 2:36 PM Indication: Shortness of breath and chest pain; history of CABG 4 days ago Technique: Multiple CTA images were obtained of the thorax with IV contrast. 3-D rendering: MIP janee nstructed images were created and reviewed. Comparison: Chest radiograph dated July 23, 2019 Findings: Pulmonary arteries: No central or segmental pulmonary embolus is evident. Heart and Aorta: Small amount of residual gas is present within the anterior mediastinum which is li karina postoperative. Small amount of residual hemorrhage is present within the anterior mediastinum. There is opacification of the coronary artery bypass grafts. There is a right subclavian central veno us catheter. Mediastinum:No definite enlarged lymph nodes are evident Lungs:There is compressive atelectasis of both lower lobes and lingula Pleural space: There is small bilateral pleural effusions, left greater than right, that persists fr om the comparison radiographs Upper Abdomen: No acute abnormality. Osseous Structures: No acute osseous abnormality. There is scattered degenerative and osteoarthritic change present. Soft tissues:No abnormality. Other findings:None. Impression: No central or segmental pulmonary embolus. Expected postoperative findings within the mediastinum. Small bilateral pleural effusions, left greater than right, likely stable to the prior chest radiogra phs. Compressive atelectasis of both lung bases and lingula.
[2019-07-26] MEDS: Atorvastatin Calcium 20 MG TAB PO SCH (20:41)
[2019-07-27] MEDS: Dronedarone HCl 400 MG TAB PO SCH ×2 (08:20→16:59)
[2019-07-27] MEDS: Potassium Chloride 10 MEQ TAB PO SCH (08:20)
[2019-07-27] MEDS: Carvedilol 3.125 MG TAB PO SCH ×2 (08:20→17:00)
[2019-07-27] MEDS: HYDROcodone/Acetaminophen 5/325 mg Tablet PO PRN ×3 (08:20→20:38)
[2019-07-27] MEDS: Aspirin 325 MG TAB PO SCH (08:21)
[2019-07-27] MEDS: Lisinopril 10 MG TAB PO SCH (08:21)
[2019-07-27] MEDS: Furosemide 40 MG TAB PO SCH (08:21)
--- NOTE | 2019-07-27 16:32 | PDOC.CPN ---
- Subjective Date: 07/27/19 Time: 16:30 Interval history: He has been working with PT, he feels exhausted. He had a run of afib from 4am to 10:30 am and no afib since. Had normal BM today. - Review of Systems General: reports: fatigue. denies: fever/chills, weight/appetite/sleep changes , night sweats Respiratory: denies: cough, congestion, shortness of breath, exercise intolerance Cardiovascular: denies: chest pain, palpitation, edema, paroxysmal nocturnal dyspnea, orthopnea Gastrointestinal: denies: nausea, vomiting, diarrhea, constipation, abd pain, GI bleeding Musculoskeletal: reports: pain. denies: tenderness, stiffness, swelling, arthritis/arthralgias Neurological: denies: numbness, syncope, seizure, weakness - Objective Allergies/Adverse Reactions: Allergies Allergy/AdvReac Type Severity Reaction Status Date / Time No Known Allergies Allergy Verified 07/21/19 12:55 Visit Medications: Current Medications Acetaminophen (Tylenol) 650 mg PO Q6H PRN PRN Reason: Headache/Fever/Mild Pain (1-3) Hydrocodone Bitart/Acetaminophen ([place] 5/325) 2 tab PO Q4H PRN PRN Reason: Pain Last Admin: 07/27/19 08:20 Dose: 2 tab Al Hydroxide/Mg Hydroxide (Maalox) 30 ml PO Q4H PRN PRN Reason: Indigestion Albuterol/Ipratropium (Duoneb) 3 ml NEB Q6H PRN PRN Reason: SHORTNESS OF BREATH Aspirin (Aspirin) 325 mg PO DAILY [facility] Last Admin: 07/27/19 08:21 Dose: 325 mg Atorvastatin Calcium (Lipitor) 20 mg PO HS [facility] Last Admin: 07/26/19 20:41 Dose: 20 mg Bisacodyl (Dulcolax) 10 mg PO Q12H PRN PRN Reason: Constipation Last Admin: 07/25/19 03:00 Dose: 10 mg Bisacodyl (Dulcolax) 10 mg [place] Q12H PRN PRN Reason: Constipation Carvedilol (Coreg) 6.25 mg PO BID-[facility] Last Admin: 07/27/19 08:20 Dose: 6.25 mg Diphenhydramine HCl (Benadryl) 25 mg PO Q6H PRN PRN Reason: Itching & Insomnia or Tru Leobardo Dronedarone (Multaq) 400 mg PO BID-[facility] Last Admin: 07/27/19 08:20 Dose: 400 mg Fentanyl (Sublimaze) 25 mcg SLOW IVP Q2H PRN PRN Reason: Moderate Pain (4-6) Last Admin: 07/26/19 09:54 Dose: 25 mcg Fentanyl (Sublimaze) 50 mcg SLOW IVP Q2H PRN PRN Reason: Severe Pain (7-10) Last Admin: 07/26/19 14:27 Dose: 50 mcg Furosemide (Lasix) 40 mg PO DAILY [facility] Last Admin: 07/27/19 08:21 Dose: 40 mg Guaifenesin/Dextromethorphan (Robitussin Dm) 15 ml PO Q4H PRN PRN Reason: Cough Hydralazine HCl (Apresoline) 10 mg SLOW IVP Q6H PRN PRN Reason: To Maintain SBP< 140mmHG Lisinopril (Zestril) 10 mg PO DAILY [facility] Last Admin: 07/27/19 08:21 Dose: 10 mg Mineral Oil (Fleet Mineral Oil) 133 ml [place] DAILYPRN PRN PRN Reason: Constipation Nitroglycerin (Nitrostat) 0.4 mg SL Q5MIN PRN PRN Reason: Chest Pain Ondansetron HCl (Zofran) 4 mg IVP Q6H PRN PRN Reason: Nausea/Vomiting Pantoprazole Sodium (Protonix) 40 mg PO DAILY [facility] Last Admin: 07/27/19 08:21 Dose: 40 mg Potassium Chloride (Kcl) 20 meq IVPB PRN PRN PRN Reason: K level </= 4.0 Last Admin: 07/23/19 08:02 Dose: 20 meq Potassium Chloride (Klor-Con 10) 10 meq PO QAM-[facility] Last Admin: 07/27/19 08:20 Dose: 10 meq Promethazine HCl (Phenergan) 6.25 mg IM Q4H PRN PRN Reason: Nausea/Vomiting Sodium Chloride (Flush - Normal Saline) 10 ml IVF PRN PRN PRN Reason: Saline Flush Zolpidem Tartrate (Ambien) 5 mg PO HSPRN PRN PRN Reason: Insomnia Vital Signs & Weight: Vital Signs Temp Pulse Pulse Pulse Resp BP BP 07/27/19 11:36 66 59 L 169/78 H 167/79 H 07/27/19 11:08 98.3 F 60 18 07/27/19 07:29 98.3 F 70 18 BP Pulse Ox Pulse Ox Pulse Ox 07/27/19 11:36 95 96 07/27/19 11:08 139/68 92 L 07/27/19 07:29 171/83 H 93 L Weight 211 lb - Physical Exam General: alert & oriented x3 HEENT: mucus membranes moist Neck: supple neck Cardiac: regular rate and rhythm Lungs: clear to auscultation Neuro: grossly intact Abdomen: active bowel sounds Extremities: no edema Skin: clear Musculoskeletal: no pain - Labs Result Diagrams: 07/26/19 14:50 07/26/19 14:50 - Telemetry Sinus rhythms and dysrhythmias: sinus rhythm - Assessment/Plan Assessment/Plan: 1. CAD with s/p CABG x6 2. Post op atrial fibrillation: PLAN: - Continue Multaq for afib. - On ASA, statin, BB, ACEI. - Will increase ACEI for better BP control. - Increase PT as tolerated. - PO lasix.
[2019-07-27] MEDS: Atorvastatin Calcium 20 MG TAB PO SCH (20:38)
[2019-07-28] MEDS: HYDROcodone/Acetaminophen 5/325 mg Tablet PO PRN ×2 (03:12→14:01)
--- NOTE | 2019-07-28 08:19 | PDOC.CPN ---
- Subjective Date: 07/28/19 Time: 08:19 Interval history: The pt seen and examined. No overnight events. No cardiac complaints, except short sharp pain to Lt chest. CT chest showed normal except bilat mild pleural effusions - Objective Allergies/Adverse Reactions: Allergies Allergy/AdvReac Type Severity Reaction Status Date / Time No Known Allergies Allergy Verified 07/21/19 12:55 Visit Medications: Current Medications Acetaminophen (Tylenol) 650 mg PO Q6H PRN PRN Reason: Headache/Fever/Mild Pain (1-3) Hydrocodone Bitart/Acetaminophen ([place] 5/325) 2 tab PO Q4H PRN PRN Reason: Pain Last Admin: 07/28/19 03:12 Dose: 2 tab Al Hydroxide/Mg Hydroxide (Maalox) 30 ml PO Q4H PRN PRN Reason: Indigestion Albuterol/Ipratropium (Duoneb) 3 ml NEB Q6H PRN PRN Reason: SHORTNESS OF BREATH Aspirin (Aspirin) 325 mg PO DAILY [facility] Last Admin: 07/27/19 08:21 Dose: 325 mg Atorvastatin Calcium (Lipitor) [address] [facility] Last Admin: 07/27/19 20:38 Dose: 20 mg Bisacodyl (Dulcolax) 10 mg PO Q12H PRN PRN Reason: Constipation Last Admin: 07/25/19 03:00 Dose: 10 mg Bisacodyl (Dulcolax) 10 mg [place] Q12H PRN PRN Reason: Constipation Carvedilol (Coreg) 12.5 mg PO BID-[facility] Diphenhydramine HCl (Benadryl) 25 mg PO Q6H PRN PRN Reason: Itching & Insomnia or Tru Leobardo Dronedarone (Multaq) 400 mg PO BID-[facility] Last Admin: 07/27/19 16:59 Dose: 400 mg Fentanyl (Sublimaze) 25 mcg SLOW IVP Q2H PRN PRN Reason: Moderate Pain (4-6) Last Admin: 07/26/19 09:54 Dose: 25 mcg Fentanyl (Sublimaze) 50 mcg SLOW IVP Q2H PRN PRN Reason: Severe Pain (7-10) Last Admin: 07/26/19 14:27 Dose: 50 mcg Furosemide (Lasix) 40 mg PO DAILY [facility] Last Admin: 07/27/19 08:21 Dose: 40 mg Guaifenesin/Dextromethorphan (Robitussin Dm) 15 ml PO Q4H PRN PRN Reason: Cough Hydralazine HCl (Apresoline) 10 mg SLOW IVP Q6H PRN PRN Reason: To Maintain SBP< 140mmHG Lisinopril (Zestril) 20 mg PO DAILY [facility] Mineral Oil (Fleet Mineral Oil) 133 ml [place] DAILYPRN PRN PRN Reason: Constipation Nitroglycerin (Nitrostat) 0.4 mg SL Q5MIN PRN PRN Reason: Chest Pain Ondansetron HCl (Zofran) 4 mg IVP Q6H PRN PRN Reason: Nausea/Vomiting Pantoprazole Sodium (Protonix) 40 mg PO DAILY [facility] Last Admin: 07/27/19 08:21 Dose: 40 mg Potassium Chloride (Kcl) 20 meq IVPB PRN PRN PRN Reason: K level </= 4.0 Last Admin: 07/23/19 08:02 Dose: 20 meq Potassium Chloride (Klor-Con 10) 10 meq PO QAM-[facility] Last Admin: 07/27/19 08:20 Dose: 10 meq Promethazine HCl (Phenergan) 6.25 mg IM Q4H PRN PRN Reason: Nausea/Vomiting Sodium Chloride (Flush - Normal Saline) 10 ml IVF PRN PRN PRN Reason: Saline Flush Zolpidem Tartrate (Ambien) 5 mg PO HSPRN PRN PRN Reason: Insomnia Vital Signs & Weight: Vital Signs Temp Pulse Resp BP Pulse Ox 07/28/19 07:33 98.5 F 65 18 168/79 H 95 07/28/19 04:15 162/75 H 07/28/19 04:00 97.7 F 66 16 171/84 H 94 L 07/27/19 20:35 97.9 F 66 18 119/57 L 94 L Weight 210 lb 9 oz - Physical Exam General: alert & oriented x3 HEENT: mucus membranes moist Neck: supple neck Cardiac: regular rate and rhythm, S1/S2 Lungs: clear to auscultation Extremities: no edema - Labs Result Diagrams: 07/26/19 14:50 07/26/19 14:50 - Telemetry Sinus rhythms and dysrhythmias: sinus rhythm - Assessment/Plan Assessment/Plan: 1. CAD with s/p CABG x 6 on 07/22/2019 with MARCOS-diag and LAD, Lt Radial-OM, and RSVG-RCA and PDA - stable; On ASA, Lipitor, Coreg and Lisinopril 2. Atrial fibrillation - converted back to SR this AM; On Multaq and ASA 325mg qd. 3. HTN - Coreg was increased to 12.5mg BID and Lisinopril to 20mg qd from this AM MAR reviewed * From Cardiac standpoint, the pt may d/c home if his BP is stable pt. seen and eval. by me. I agree with the A/P by the [employer]. His BP is elevated this AM. Adjusting meds. Chest clear. RRR.
[2019-07-28] MEDS ORDERED: Lisinopril 10 MG TAB PO SCH (09:00)
[2019-07-28] MEDS: Dronedarone HCl 400 MG TAB PO SCH ×2 (09:07→16:26)
[2019-07-28] MEDS: Carvedilol 6.25 MG TAB PO SCH ×2 (09:07→16:25)
[2019-07-28] MEDS: Furosemide 40 MG TAB PO SCH (09:08)
[2019-07-28] MEDS: Potassium Chloride 10 MEQ TAB PO SCH (09:08)
[2019-07-28] MEDS: Aspirin 325 MG TAB PO SCH (09:08)
[2019-07-28 11:34] VITALS: BMI 28.0
[2019-07-28] MEDS: Atorvastatin Calcium 20 MG TAB PO SCH (20:45)
[2019-07-29] MEDS: HYDROcodone/Acetaminophen 5/325 mg Tablet PO PRN (05:50)
--- NOTE | 2019-07-29 06:34 | DIS ---
DATE OF ADMISSION: 07/22/2019 DATE OF DISCHARGE: 07/29/2019 DIAGNOSES: 1. Coronary artery disease. 2. Hypertension. 3. Dyslipidemia. PROCEDURES: Coronary artery bypass grafting x6: 1. Left internal mammary in sequence to diagonal and LAD. 2. Left radial artery to OM. 3. Reverse saphenous vein to ramus. 4. Reverse saphenous vein in sequence to right coronary artery and PDA. DESCRIPTION OF HOSPITAL STAY: Mr. Will was brought in for elective bypass. He underwent bypass as above. He has done well postoperatively. He had a brief bout of atrial fibrillation followed by bradycardia with amiodarone after conversion to sinus rhythm. He was started on Multaq. He has otherwise done well. He has had some chest pains that are musculoskeletal in nature, which were controlled with oral pain medication. At the time of discharge, he is ambulatory, tolerating a regular diet, having good bowel and bladder function. Incisions are clean and dry without signs of infection. DISCHARGE MEDICATIONS: Include: 1. Aspirin 325 mg daily. 2. Lipitor 20 mg at bedtime. 3. Coreg 12.5 mg b.i.d. 4. Multaq 400 mg b.i.d. 5. Zestril 20 mg daily. 6. [place] 5/325 one to two q.6 hours p.r.n. pain. FOLLOWUP: Followup is with me in [address] Bunn in a month. Job ID: [id number]
[2019-07-29 08:19] VITALS: BP 158/75; TEMP 98.2
[2019-07-29] MEDS: Potassium Chloride 10 MEQ TAB PO SCH (08:20)
[2019-07-29] MEDS: Dronedarone HCl 400 MG TAB PO SCH (08:20)
[2019-07-29] MEDS: Carvedilol 6.25 MG TAB PO SCH (08:20)
[2019-07-29] MEDS: Furosemide 40 MG TAB PO SCH (08:21)
[2019-07-29] MEDS: Aspirin 325 MG TAB PO SCH (08:21)
[2019-07-29] MEDS ORDERED: Lisinopril 20 MG TAB PO SCH (09:00)
--- NOTE | 2019-07-29 10:38 | PDOC.CPN ---
- Subjective Date: 07/29/19 Time: 10:36 Interval history: The pt seen and examined. No overnight events. No cardiac complaints. - Objective Allergies/Adverse Reactions: Allergies Allergy/AdvReac Type Severity Reaction Status Date / Time No Known Allergies Allergy Verified 07/21/19 12:55 Visit Medications: Current Medications Acetaminophen (Tylenol) 650 mg PO Q6H PRN PRN Reason: Headache/Fever/Mild Pain (1-3) Last Admin: 07/28/19 11:36 Dose: 650 mg Hydrocodone Bitart/Acetaminophen ([place] 5/325) 2 tab PO Q4H PRN PRN Reason: Pain Last Admin: 07/29/19 05:50 Dose: 2 tab Al Hydroxide/Mg Hydroxide (Maalox) 30 ml PO Q4H PRN PRN Reason: Indigestion Albuterol/Ipratropium (Duoneb) 3 ml NEB Q6H PRN PRN Reason: SHORTNESS OF BREATH Aspirin (Aspirin) 325 mg PO DAILY [facility] Last Admin: 07/29/19 08:21 Dose: 325 mg Atorvastatin Calcium (Lipitor) 20 mg PO [facility] Last Admin: 07/28/19 20:45 Dose: 20 mg Bisacodyl (Dulcolax) 10 mg PO Q12H PRN PRN Reason: Constipation Last Admin: 07/25/19 03:00 Dose: 10 mg Bisacodyl (Dulcolax) 10 mg [place] Q12H PRN PRN Reason: Constipation [facility] Last Admin: 07/29/19 08:20 Dose: 12.5 mg Diphenhydramine HCl (Benadryl) 25 mg PO Q6H PRN PRN Reason: Itching & Insomnia or Tru Leobardo [facility] Last Admin: 07/29/19 08:20 Dose: 400 mg Fentanyl (Sublimaze) 25 mcg SLOW IVP Q2H PRN PRN Reason: Moderate Pain (4-6) Last Admin: 07/26/19 09:54 Dose: 25 mcg Fentanyl (Sublimaze) 50 mcg SLOW IVP Q2H PRN PRN Reason: Severe Pain (7-10) Last Admin: 07/26/19 14:27 Dose: 50 mcg Furosemide (Lasix) 40 mg PO DAILY [facility] Last Admin: 07/29/19 08:21 Dose: 40 mg Guaifenesin/Dextromethorphan (Robitussin Dm) 15 ml PO Q4H PRN PRN Reason: Cough Hydralazine HCl (Apresoline) 10 mg SLOW IVP Q6H PRN PRN Reason: To Maintain SBP< 140mmHG Lisinopril (Zestril) 20 mg PO BID [facility] Last Admin: 07/29/19 08:21 Dose: 20 mg Mineral Oil (Fleet Mineral Oil) 133 ml [place] DAILYPRN PRN PRN Reason: Constipation Nitroglycerin (Nitrostat) 0.4 mg SL Q5MIN PRN PRN Reason: Chest Pain Ondansetron HCl (Zofran) 4 mg IVP Q6H PRN PRN Reason: Nausea/Vomiting Last Admin: 07/28/19 18:12 Dose: 4 mg Pantoprazole Sodium (Protonix) 40 mg PO DAILY [facility] Last Admin: 07/29/19 08:20 Dose: 40 mg Potassium Chloride (Kcl) 20 meq IVPB PRN PRN PRN Reason: K level </= 4.0 Last Admin: 07/23/19 08:02 Dose: 20 meq Potassium Chloride (Klor-Con 10) 10 meq PO QAM-[facility] Last Admin: 07/29/19 08:20 Dose: 10 meq Promethazine HCl (Phenergan) 6.25 mg IM Q4H PRN PRN Reason: Nausea/Vomiting Sodium Chloride (Flush - Normal Saline) 10 ml IVF PRN PRN PRN Reason: Saline Flush Zolpidem Tartrate (Ambien) 5 mg PO HSPRN PRN PRN Reason: Insomnia Vital Signs & Weight: Vital Signs Temp Pulse Resp BP Pulse Ox 07/29/19 08:20 93 L 07/29/19 08:17 98.2 F 65 18 158/75 H 93 L 07/29/19 03:18 97.8 F 66 18 159/67 H 92 L Weight 207 lb 6 oz - Physical Exam General: alert & oriented x3 HEENT: mucus membranes moist Neck: supple neck Cardiac: regular rate and rhythm, S1/S2 Lungs: clear to auscultation Neuro: cranial nerve 2-12 intact Extremities: no edema - Labs Result Diagrams: 07/26/19 14:50 07/26/19 14:50 - Telemetry Sinus rhythms and dysrhythmias: sinus rhythm - Assessment/Plan Assessment/Plan: 1. CAD with s/p CABG x 6 on 07/22/2019 with MARCOS-diag and LAD, Lt Radial-OM, and RSVG-RCA and PDA - stable; On ASA, Lipitor, Coreg and Lisinopril 2. Atrial fibrillation - converted back to SR this AM; On Multaq and ASA 325mg qd. 3. HTN - will increase Lisinopril 20mg from qd to BID; MAR reviewed * From Cardiac standpoint, the pt may d/c home if his BP is stable Pt. seen and eval. by me. feels better, no complaint of chest pain today. BP still fluctuating. Romulo-I increased. okay to d/c today. F/u with me in 1 month Chest clear. RRR. Continue Multaq for 1 month.
--- NOTE | 2019-07-30 13:40 | EKG ---
Test Reason : C/O CHEST PAIN Blood Pressure : / mmHG Vent. Rate : 064 BPM Atrial Rate : 064 BPM P-R Int : 130 ms QRS Dur : 102 ms QT Int : 456 ms P-R-T Axes : 015 024 028 degrees QTc Int : 470 ms Normal sinus rhythm Cannot rule out Inferior infarct , age undetermined Abnormal ECG When compared with ECG of 24-JUL-2019 14:03, (Unconfirmed) QT has lengthened Confirmed by LUIS CUEVAS ([id number]) on 07/30/2019 1:40:18 PM Referred By: ARISTIDES Confirmed By:LUIS CUEVAS
--- NOTE | 2019-07-30 17:40 | EKG ---
Test Reason : Blood Pressure : / mmHG Vent. Rate : 051 BPM Atrial Rate : 051 BPM P-R Int : 154 ms QRS Dur : 098 ms QT Int : 436 ms P-R-T Axes : 049 -11 019 degrees QTc Int : 401 ms Sinus bradycardia Minimal voltage criteria for LVH, may be normal variant Borderline ECG When compared with ECG of 24-JUL-2019 07:15, (Unconfirmed) Sinus rhythm has replaced Atrial fibrillation Vent. rate has decreased BY 67 BPM Non-specific change in ST segment in Inferior leads Confirmed by DR. Tresa SWANSON ([id number]) on 07/30/2019 5:39:57 PM Referred By: ARISTIDES Confirmed By:DR. Tresa SWANSON
== END 2019-07-29 10:41 | disposition home or self-care (01) | DRG 236 ==
LOC: SURG A 07-22 05:57 → CCU 07-22 09:21 → 2NO 07-25 06:19
PROVIDERS: ADMIT Thoracic Surgery (Cardiothoracic Vascular Surgery); ATTEND Thoracic Surgery (Cardiothoracic Vascular Surgery)
PROC: 02110Z9 Bypass Coronary Artery, Two Arteries from Left Internal Mammary, Open Approach (ICD-10-PCS; principal; 2019-07-22)
PROC: 06BQ4ZZ Excision of Left Saphenous Vein, Percutaneous Endoscopic Approach (ICD-10-PCS; 2019-07-22)
PROC: 02100A3 Bypass Coronary Artery, One Artery from Coronary Artery with Autologous Arterial Tissue, Open Approach (ICD-10-PCS; 2019-07-22)
PROC: 021209W Bypass Coronary Artery, Three Arteries from Aorta with Autologous Venous Tissue, Open Approach (ICD-10-PCS; 2019-07-22)
PROC: 03BC3ZZ Excision of Left Radial Artery, Percutaneous Approach (ICD-10-PCS; 2019-07-22)
PROC: 5A1221Z Performance of Cardiac Output, Continuous (ICD-10-PCS; 2019-07-22)
DX: I25.118 Atherosclerotic heart disease of native coronary artery with other forms of angina pectoris (principal); I10 Essential (primary) hypertension; E78.5 Hyperlipidemia, unspecified; I48.91 Unspecified atrial fibrillation; Z79.82 Long term (current) use of aspirin; Z87.891 Personal history of nicotine dependence
CPT/HCPCS: 36415; 36416; 36430; 71045; 71046; 71275; 80048; 80053; 85025; 85027; 85610; 85730; 86850; 86900; 86901; 93005; 93010; 93798; J0171; J0282; J0690; J1100; J1642; J1644; J1815; J1885; J2001; J2250; J2405; J2440; J2704; J2720; J3010; J3370; J3475; J3480; J7070; P9045; Q9967; S0017; S0020; S0028